=== PATIENT | male | born 1965 | race Caucasian/White ===

== ENCOUNTER 2018-12-08 08:56 | Emergency (ER) | payer OTHER ==
[~2018-12-08] VITALS: Ht 175.3 cm; Wt 72.6 kg
[2018-12-08] MEDS ORDERED: DIPH-TET-PERTUS Vaccine 0.5 ML VIAL (ADACEL) IM ONE (09:00)
[2018-12-08] MEDS ORDERED: LIDOCAINE 1% 10 MG/ML, 20 ML MDV IJ ONE (09:00)
[2018-12-08 09:08] VITALS: BP_SYST 122
--- NOTE | 2018-12-08 09:10 | NUR ---
Patient to ER bed 7 to gown for evaluation. Side rails up. Report given to Antonina HAYWOOD.
--- NOTE | 2018-12-08 09:12 | NUR ---
Pt presents to ED c/o LAC to RH sustained w/bandsaw per report.
--- NOTE | 2018-12-08 09:25 | NUR ---
ER Dr. Lopez at bedside examining patient.
--- NOTE | 2018-12-08 09:31 | NUR ---
pt tolerating wound repair
[2018-12-08] MEDS ORDERED: BACITRACIN 1 GM OINT TP ONE (09:51)
[2018-12-08 10:10] VITALS: BP_SYST 142
--- NOTE | 2018-12-08 10:10 | NUR ---
Patient given written and verbal discharge instructions and verbalizes understanding. ER MD discussed with patient the results and treatment provided. Patient in stable condition. ID arm band removed. Rx of tylenol given. Patient educated on pain management and to follow up with PMD. Pain Scale 1/10. Opportunity for questions provided and answered. Medication side effect fact sheet provided. Wound dressed and additional bandages given.
== END 2018-12-08 10:10 | disposition home or self-care (01) ==
LOC: SED 08:56
DX: S61.411A Laceration without foreign body of right hand, initial encounter (principal); W45.8XXA Other foreign body or object entering through skin, initial encounter; Y93.89 Activity, other specified; Y92.89 Other specified places as the place of occurrence of the external cause; Y99.8 Other external cause status
CPT/HCPCS: 90715; 99284; J2001